=== PATIENT | female | born 1940 | race Caucasian/White ===

== ENCOUNTER 2018-08-05 18:19 | Emergency (ER) | payer MEDICAID, OTHER ==
[2018-08-05 18:45] VITALS: BMI 27.3
[2018-08-05 18:49] VITALS: BP 164/92; PULSE 73; RESP 18; TEMP 97.5; O2SAT 99
[2018-08-05] MEDS ORDERED: Lidocaine 5% Patch TD STA (20:20)
--- NOTE | 2018-08-05 20:23 | C.PDOC ---
History Of Present Illness 78 year old female presents to ED complaining of nasal congestion and dry cough for the last 3 days. Patient also complains of back pain that radiates to right posterior leg for the past year. Patient never talked to PMD about back pain. Denies fever, nausea, vomiting. Time Seen by Provider: 08/05/18 19:12 Chief Complaint (Nursing): Back Pain History Per: Patient History/Exam Limitations: no limitations Onset/Duration Of Symptoms: Days Current Symptoms Are (Timing): Still Present Past Medical History Reviewed: Historical Data, Nursing Documentation, Vital Signs Vital Signs: Last Vital Signs Temp 97.5 F L 08/05/18 18:46 Pulse 73 08/05/18 18:46 Resp 18 08/05/18 18:46 BP 164/92 H 08/05/18 18:46 Pulse Ox 99 08/06/18 11:23 - Medical History PMH: HTN Surgical History: Appendectomy, Cholecystectomy, Family History: States: No Known Family Hx - Social History Hx Tobacco Use: No Hx Alcohol Use: No Hx Substance Use: No - Immunization History Hx Tetanus Toxoid Vaccination: No Hx Influenza Vaccination: No Hx Pneumococcal Vaccination: No Review Of Systems Except As Marked, All Systems Reviewed And Found Negative. Constitutional: Negative for: Fever ENT: Positive for: Nose Congestion Respiratory: Positive for: Cough Gastrointestinal: Negative for: Nausea, Vomiting Musculoskeletal: Positive for: Back Pain Physical Exam - Physical Exam Appears: Non-toxic, No Acute Distress Skin: Normal Color, Warm, Dry Head: Atraumatic, Normacephalic Eye(s): bilateral: Normal Inspection Nose: Normal Oral Mucosa: Moist Neck: Normal ROM, Supple Cardiovascular: Rhythm Regular Respiratory: Normal Breath Sounds, No Rales, No Rhonchi, No Wheezing Back: Vertebral Tenderness Extremity: Normal ROM, Tenderness (slight tenderness to posterior thighs and buttocks.), Capillary Refill (less than 2 seconds), No Deformity, No Swelling Neurological/Psych: Oriented x3, Normal Speech ED Course And Treatment O2 Sat by Pulse Oximetry: 99 (RA) Pulse Ox Interpretation: Normal - Other Rad CXR X-Ray: Viewed By Me, Read By Radiologist Interpretation: FINDINGS: LUNGS: Stable chronic prominence of the bilateral interstitial markings with some mild peripheral bibasilar fibrotic changes. No focal consolidation. PLEURA: No significant pleural effusion identified. No pneumothorax apparent. CARDIOVASCULAR: Atherosclerotic aortic calcifications. Cardiomediastinal silhouette within normal limits. OSSEOUS STRUCTURES: Unchanged. VISUALIZED UPPER ABDOMEN: Normal. OTHER FINDINGS: None. IMPRESSION: No active disease. LS spine X-Ray: Viewed By Me, Read By Radiologist Interpretation: FINDINGS: BONES: Levoconvex curvature of the lumbar spine centered at L3. No listhesis. No fracture. DISC SPACES: Multilevel disc space narrowing, worst at L4-5. OTHER FINDINGS: None. IMPRESSION: No acute fracture. Multilevel degenerative changes. Progress Note: L-spine x-ray, chest x-ray, ordered and reviewed. Patient is being discharged home with instructions to follow up with PMD in 1-2 days. Disposition - Disposition Referrals: Samaria Stratton MD [Staff Provider] - Disposition: HOME/ ROUTINE Disposition Time: 20:21 Condition: STABLE Additional Instructions: Follow up with PMD within 1-2 days. Return to ED if feel worse. Prescriptions: Fluticasone Nasal [Flonase] 1 spr NS BID #1 spr Lidocaine 5% [Lidoderm] 1 patch TP DAILY #30 patch Methocarbamol [Robaxin-750] 750 mg PO TID #30 tab Benzonatate [Tessalon Perles] 2 tab PO TID #60 sgl traMADol/Acetaminophen [Ultracet 325 MG-37.5 MG] 1 tab PO Q6 PRN #20 tab PRN Reason: Pain Instructions: Low Back Pain (DC), Viral Upper Respiratory Infection, Adult (DC ) Forms: [employer] (Portuguese) Print Language: LUXEMBOURGER - Clinical Impression Clinical Impression: Upper respiratory infection, Low back pain - PA / [employer]OD SERVICE LEAD / Resident Statement MD/DO has reviewed & agrees with the documentation as recorded. - Scribe Statement The provider has reviewed the documentation as recorded by the Scribe Cipriano Damian All medical record entries made by the Scribe were at my direction and personally dictated by me. I have reviewed the chart and agree that the record accurately reflects my personal performance of the history, physical exam, medical decision making, and the department course for this patient. I have also personally directed, reviewed, and agree with the discharge instructions and disposition.
[2018-08-05] MEDS ORDERED: Lidocaine 5% Patch TD ONE (20:25)
--- NOTE | 2018-08-06 08:32 | RAD ---
Date of service: 08/05/2018 HISTORY: cough COMPARISON: Chest radiograph dated 10/16/2016. TECHNIQUE: Chest PA and lateral FINDINGS: LUNGS: Stable chronic prominence of the bilateral interstitial markings with some mild peripheral bibasilar fibrotic changes. No focal consolidation. PLEURA: No significant pleural effusion identified. No pneumothorax apparent. CARDIOVASCULAR: Atherosclerotic aortic calcifications. Cardiomediastinal silhouette within normal limits. OSSEOUS STRUCTURES: Unchanged. VISUALIZED UPPER ABDOMEN: Normal. OTHER FINDINGS: None. IMPRESSION: No active disease.
--- NOTE | 2018-08-06 08:33 | RAD ---
Date of service: 08/05/2018 PROCEDURE: Radiographs of the Lumbar Spine. HISTORY: pain, radiating to right leg COMPARISON: Lumbar spine radiographs dated 06/04/2015. FINDINGS: BONES: Levoconvex curvature of the lumbar spine centered at L3. No listhesis. No fracture. DISC SPACES: Multilevel disc space narrowing, worst at L4-5. OTHER FINDINGS: None. IMPRESSION: No acute fracture. Multilevel degenerative changes.
== END 2018-08-05 20:54 | disposition home or self-care (01) ==
LOC: C.ER 18:19
DX: J06.9 Acute upper respiratory infection, unspecified (principal); M54.5 Low back pain; I10 Essential (primary) hypertension
CPT/HCPCS: 71046; 72100; 96372; 99283; J1885

== ENCOUNTER 2018-12-13 17:41 | Emergency (ER) | payer MEDICAID ==
[2018-12-13 17:41] VITALS: BMI 27.3
[2018-12-13] MEDS ORDERED: Sodium Chloride 0.9% 1,000 ML IV ONE (19:11)
--- NOTE | 2018-12-13 19:11 | C.PDOC ---
History Of Present Illness The patient presents to the ED for evaluation of nausea, vomiting, and diarrhea which began this morning. Patient reports she has been unable to tolerate PO intake. She denies fever, chills, or urinary symptoms at this time. Time Seen by Provider: 12/13/18 19:10 Chief Complaint (Nursing): GI Problem History Per: Patient History/Exam Limitations: no limitations Onset/Duration Of Symptoms: Hrs Current Symptoms Are (Timing): Still Present Context: Other (unknown ) Severity: Mild Pain Scale Rating Of: 2 Location Of Pain/Discomfort: Epigastric Radiation Of Pain To:: None Quality Of Discomfort: "Pain" Associated Symptoms: Nausea, Vomiting, Diarrhea. denies: Fever, Chills, Urinary Symptoms Exacerbating Factors: None Alleviating Factors: None Last Bowel Movement: Today Recent travel outside of the [place]: No Additional History Per: Patient Abnormal Vaginal Bleeding: No Past Medical History Reviewed: Historical Data, Nursing Documentation, Vital Signs Vital Signs: Last Vital Signs Temp 98.4 F 12/13/18 18:36 Pulse 66 12/13/18 18:36 Resp 16 12/13/18 18:36 BP 113/66 12/13/18 18:36 Pulse Ox 98 12/13/18 18:36 - Medical History PMH: HTN Surgical History: Appendectomy, Cholecystectomy, Family History: States: Unknown Family Hx - Social History Hx Tobacco Use: No Hx Alcohol Use: No Hx Substance Use: No - Immunization History Hx Tetanus Toxoid Vaccination: No Hx Influenza Vaccination: No Hx Pneumococcal Vaccination: No Review Of Systems Constitutional: Negative for: Fever, Chills Cardiovascular: Negative for: Chest Pain, Palpitations Respiratory: Negative for: Cough, Shortness of Breath Gastrointestinal: Positive for: Nausea, Vomiting, Abdominal Pain, Diarrhea Genitourinary: Negative for: Dysuria, Frequency, Hematuria Musculoskeletal: Negative for: Back Pain Skin: Negative for: Rash, Lesions, Jaundice, Bruising Neurological: Negative for: Weakness, Numbness Physical Exam - Physical Exam Appears: Non-toxic, No Acute Distress Skin: Warm, Dry Head: Normacephalic Eye(s): bilateral: Normal Inspection Oral Mucosa: Moist Neck: Supple Chest: Symmetrical, No Deformity, No Tenderness Cardiovascular: Rhythm Regular, No Murmur Respiratory: No Rales, No Rhonchi, No Wheezing Gastrointestinal/Abdominal: Soft, Tenderness (mid-epigastric ), No Guarding, No Rebound Extremity: Normal ROM, Capillary Refill (less than 2 seconds ) Neurological/Psych: Oriented x3 ED Course And Treatment - Laboratory Results Result Diagrams: 12/13/18 19:36 12/13/18 19:36 O2 Sat by Pulse Oximetry: 98 (on RA) Pulse Ox Interpretation: Normal - CT Scan/US CT A/P Other Rad Studies (CT/US): Read By Radiologist, Radiology Report Reviewed CT/US Interpretation: EXAM: CT Abdomen and Pelvis with IV contrast. CLINICAL HISTORY: DIFUSED ABDOMINAL PAIN, VOMITING. TECHNIQUE: Axial computed tomography images of the abdomen and pelvis with intravenous contrast. CONTRAST: With intravenous contrast. COMPARISON: None provided. FINDINGS: LUNG BASES: The lung bases appear clear. No pleural effusions are seen. LIVER: Normal in size. Multiple scattered hypodense zones are noted within the liver thought consistent with multiple hepatic cysts. Consideration could be given to correlation with hepatic ultrasound evaluation. GALLBLADDER AND BILE DUCTS: There has been prior cholecystectomy. No biliary ductal dilatation is evident. PANCREAS: Unremarkable. SPLEEN: Unremarkable. ADRENAL GLANDS: Unremarkable. KIDNEYS, URETERS, AND BLADDER: A couple of tiny bilateral renal cortical cysts are noted. Otherwise, the kidneys appear within normal limits. There is no hydronephrosis or hydroureter. No urinary calculi are seen. STOMACH AND BOWEL: Mucosal edema is seen within the lower esophagus at the esophagogastric junction suggestive of some reflux esophagitis. No associated hiatal hernia is detected. Otherwise, unremarkable appearance of the stomach. No evidence of bowel obstruction. The colon is predominantly decompressed throughout its course. Additionally, there is apparent loss of the typical haustral markings. There is diffuse colitis subsequent to inflammatory bowel disease; such as ulcerative colitis, should be considered. Consideration could be given to lower endoscopic evaluation. APPENDIX: No evidence of acute appendicitis on CT examination. PERITONEUM: No free fluid. No free air. LYMPH NODES: No lymphadenopathy is evident. REPRODUCTIVE: Not visualized. This likely indicates prior total hysterectomy. Correlation with past known pelvic surgical history is needed. VASCULATURE: No evidence of abdominal aortic aneurysm. Moderate scattered atherosclerotic vascular plaquing is present. BONES: No aggressive appearing osseous lesion. No acute osseous pathology evident. There is mild levoscoliosis of the lumbar spine noted with the apex at L4. IMPRESSION: 1. Findings suspicious for diffuse colitis. Correlation with lower endoscopic evaluation may be indicated. 2. A segment of mucosal edematous changes are seen within the lower esophagus at the esophagogastric junction. This may indicate a component of reflux esophagitis. 3. Multiple hepatic cysts. Consideration could be given to hepatic ultrasound evaluation. 4. Prior total hysterectomy. Correlation with past known pelvic surgical history is needed. 5. Multiple tiny bilateral renal cortical cysts are noted. Progress Note: CT A/P, Bloodwork and urinalysis ordered. Protonix IVP, Zofran IVP and IV Fluids given. Reevaluation Time: 21:56 Reassessment Condition: Improved Medical Decision Making Medical Decision Making: Upon provider reevaluation patient is feeling better, is medically stable, and requires no further treatment in the ED at this time. Patient will be discharged home with Rx for flagyl . Counseling was provided and all questions were answere d regarding diagnosis and need for follow up withdr stratton. There is agreement to discharge plan. Return if symptoms persist or worsen. Disposition Counseled Patient/Family Regarding: Studies Performed, Diagnosis - Disposition Referrals: Samaria Stratton MD [Staff Provider] - Disposition: HOME/ ROUTINE Disposition Time: 19:11 Condition: FAIR Additional Instructions: Por favor regrese si los sntomas recurren. Prescriptions: Metronidazole [Flagyl] 500 mg PO TID #21 tablet Instructions: Colitis (DC) Forms: [employer] (New Zealander) Print Language: SETSWANA - Clinical Impression Clinical Impression: Abdominal pain, Colitis - Scribe Statement The provider has reviewed the documentation as recorded by the Scribe (Dorothy Walker) Provider Attestation: All medical record entries made by the Scribe were at my direction and personally dictated by me. I have reviewed the chart and agree that the record accurately reflects my personal performance of the history, physical exam, medical decision making, and the department course for this patient. I have also personally directed, reviewed, and agree with the discharge instructions and disposition.
[2018-12-13] MEDS ORDERED: Sodium Chloride 0.9% 1,000 ML ONE (19:40)
[2018-12-13 19:42] LABS: BASO # 0.1 K/uL (0.0-0.2); BASO % 0.4 % (0.0-2.0); EOS # 0.2 K/uL (0.0-0.7); EOS % 1.4 % (0.0-4.0); HEMOGLOBIN 12.7 g/dL (11.0-16.0); LYMPH # 1.3 K/uL (1.0-4.3); LYMPH % 10.3 % (20.0-40.0); MEAN CELL VOLUME 86.7 fL (81.0-99.0); MEAN CORPUSCULAR HEMOGLOBIN 27.8 pg (27.0-31.0); MEAN CORPUSCULAR HGB CONC 32.1 g/dL (33.0-37.0); MONO # 0.9 K/uL (0.0-0.8); MONO % 7.2 % (0.0-10.0); NEUT # 10.2 K/uL (1.8-7.0); NEUT % 80.7 % (50.0-75.0); NRBC % 0.1 % (0.0-2.0); RBC 4.57 Mil/uL (3.80-5.20); RED CELL DISTRIBUTION WIDTH 13.7 % (11.5-14.5); WHITE BLOOD COUNT 12.7 K/uL (4.8-10.8)
[2018-12-13 19:50] LABS: INR 1.2; PROTHROMBIN TIME 13.6 SECONDS (9.7-12.2)
[2018-12-13 19:55] LABS: ALB/GLOB RATIO 1.5 (1.0-2.1); ALBUMIN 4.6 g/dL (3.5-5.0); CALCIUM 9.4 mg/dl (8.6-10.4)
[2018-12-13] MEDS ORDERED: Iodixanol 320 MG/ML 100 ML BOTTLE IV ONE (20:23)
[2018-12-13 21:54] LABS: SQUAMOUS EPITHIAL < 1 /hpf (0-5); URINE BILIRUBIN NEGATIVE (NEGATIVE); URINE BLOOD 1+ (NEGATIVE); URINE CLARITY Clear (Clear); URINE COLOR Yellow (YELLOW); URINE GLUCOSE (UA) NORMAL (Normal); URINE LEUKOCYTE ESTERASE NEG Leu/uL (Negative); URINE PROTEIN NEGATIVE (NEGATIVE); URINE UROBILINOGEN NORMAL mg/dL (0.2-1.0)
[2018-12-13 22:13] VITALS: BP 110/60; PULSE 80; RESP 14; TEMP 98; O2SAT 99
--- NOTE | 2018-12-14 10:15 | CT ---
Date of service: 12/13/2018 PROCEDURE: CT Abdomen and Pelvis with contrast HISTORY: abd pain, elevated lipase COMPARISON: None available. TECHNIQUE: Contrast dose: 100 mL Visipaque 320 IV. Radiation dose: Total exam DLP = 701.29 mGy-cm. This CT exam was performed using one or more of the following dose reduction techniques: Automated exposure control, adjustment of the mA and/or kV according to patient size, and/or use of iterative reconstruction technique. FINDINGS: LOWER THORAX: No visible consolidation, pleural effusion, or pneumothorax. LIVER: Numerous low-density hepatic lesions appear consistent with cysts. GALLBLADDER AND BILE DUCTS: Cholecystectomy. PANCREAS: Unremarkable. SPLEEN: Unremarkable. ADRENALS: Unremarkable. KIDNEYS AND URETERS: The kidneys enhance symmetrically. No hydronephrosis or obstructing calculus identified. Too small to characterize renal hypodensities; statistically likely cysts. VASCULATURE: No aortic aneurysm. Atherosclerotic calcifications of the aorta. BOWEL: Stomach is nondistended. Lack of oral contrast limits evaluation for bowel pathology. No evidence of small-bowel obstruction. Colonic wall thickening likely exaggerated by under distension; correlate clinically to exclude possibility of colitis. APPENDIX: The appendix is not identified. Correlate for appendectomy. PERITONEUM: No significant free fluid. No definite free air. LYMPH NODES: No bulky adenopathy identified. BLADDER: Unremarkable. REPRODUCTIVE: Hysterectomy. BONES: Osseous demineralization. Degenerative changes. Scoliosis. OTHER FINDINGS: Tiny fat containing umbilical hernia. IMPRESSION: Colonic wall thickening likely exaggerated by under distension; correlate clinically to exclude possibility of colitis. Additional incidental findings as above. Preliminary impression was provided by [employer].
== END 2018-12-13 22:12 | disposition home or self-care (01) ==
LOC: C.ER 17:41
DX: K52.9 Noninfective gastroenteritis and colitis, unspecified (principal); R10.13 Epigastric pain
CPT/HCPCS: 74177; 80053; 81001; 83690; 85025; 85610; 85730; 96361; 96374; 96375; 99284; C9113; J2405; J7030; Q9967